=== PATIENT | male | born 1960 | race Caucasian/White ===

== ENCOUNTER → 2016-11-13 | Outpatient (CLI) | payer OTHER | END | disposition home or self-care (01) | LOC: CFH 11-07 09:24 → EDSTATUS 11-07 10:00 → CFH 13:35 | PROVIDERS: ATTEND Family Medicine | DX: I08.1 Rheumatic disorders of both mitral and tricuspid valves (principal) | CPT/HCPCS: 93306 ==

== ENCOUNTER → 2017-01-26 | Outpatient (CLI) | payer OTHER ==
[~2017-01-26] VITALS: Ht 188 cm; Wt 111.4 kg
[~2017-01-26] MED LIST: None at this Time
[2017-01-26 12:19] LABS: HEMATOCRIT 48.3 % (39.2-51.8); HEMOGLOBIN 16.2 g/dL (13.7-18.0); WHITE BLOOD COUNT 7.6 x10^3/uL (3.4-10)
[2017-01-26 12:29] LABS: ASPARTATE AMINO TRANSFERASE 16 U/L (15-37); BLOOD UREA NITROGEN 17 mg/dL (7-18)
[2017-01-26 14:23] VITALS: BP 134/89
== END | disposition home or self-care (01) ==
LOC: STAR 11:20
PROVIDERS: ATTEND Internal Medicine Cardiovascular Disease
DX: I34.0 Nonrheumatic mitral (valve) insufficiency (principal)
CPT/HCPCS: 36415; 80053; 85025; 85610; 85730

== ENCOUNTER 2017-01-30 11:06 | Day surgery (SDC) | payer BC, OTHER ==
[2017-01-30] MEDS ORDERED: SODIUM CHLORIDE 0.9% 1,000 ML IV SCH (12:27)
[2017-01-30] MEDS ORDERED: ZOLPIDEM 5MG TABLET PO PRN (12:30)
[2017-01-30] MEDS ORDERED: BISACODYL 10 MG SUPP PR PRN (12:30)
[2017-01-30] MEDS ORDERED: BISACODYL 5 MG EC TABLET PO PRN (12:30)
[2017-01-30] MEDS ORDERED: ONDANSETRON 2MG/ML, 2ML IVPush PRN (12:30)
[2017-01-30] MEDS ORDERED: ACETAMINOPHEN 325 MG TABLET PO PRN (12:30)
[2017-01-30] MEDS ORDERED: ASPIRIN 325 MG TABLET EC PO ONE (12:30)
[2017-01-30] MEDS ORDERED: ACETAMINOPHEN 325 MG TABLET ONE ×2 (16:55→16:58)
== END 2017-01-30 17:45 ==
LOC: OUT 11:06
PROVIDERS: ATTEND Internal Medicine Cardiovascular Disease
DX: I34.0 Nonrheumatic mitral (valve) insufficiency (principal); Z88.1 Allergy status to other antibiotic agents
CPT/HCPCS: 36415; 80061; 93458; 99156; C1760; C1894; Q9967

== ENCOUNTER → 2017-02-09 | Outpatient (CLI) | payer OTHER ==
[~2017-02-09] MED LIST changes: +OMNIPAQUE 350 MG/ML, 100ML BOTTLE ONE
== END | disposition home or self-care (01) ==
LOC: CFH 08:31
PROVIDERS: ATTEND Internal Medicine Cardiovascular Disease
DX: K76.89 Other specified diseases of liver (principal); M47.896 Other spondylosis, lumbar region; I34.0 Nonrheumatic mitral (valve) insufficiency
CPT/HCPCS: 71275; 74174; Q9967

== ENCOUNTER 2017-10-13 09:20 | Emergency (ER) | payer OTHER ==
[~2017-10-13] VITALS: Ht 177.8 cm; Wt 113.0 kg
[~2017-10-13 09:20] MED LIST changes: +ASPI-515 PO; -OMNIPAQUE 350 MG/ML, 100ML BOTTLE ONE; +OXYC10TA6 PO
[2017-10-13] MEDS ORDERED: ONDANSETRON ODT 4 MG ONE (09:59)
[2017-10-13] MEDS ORDERED: MAALOX/HYOSCYAMINE/LIDOCAINE 45 ML BTL ONE (09:59)
[2017-10-13] MEDS ORDERED: SODIUM CHLORIDE FLUSH 10ML SYR IVF ONE (10:00)
[2017-10-13] MEDS ORDERED: MAALOX/HYOSCYAMINE/LIDOCAINE 45 ML BTL PO ONE (10:00)
[2017-10-13] MEDS ORDERED: ONDANSETRON ODT 4 MG PO ONE (10:00)
[2017-10-13 10:05] LABS: BASOPHILS # (AUTO) 0.02 x10^3/uL (0-0.1); BASOPHILS % (AUTO) 0 % (0-1); EOSINOPHILS # (AUTO) 0.02 x10^3/uL (0-0.4); EOSINOPHILS % (AUTO) 0 % (1-7); LYMPHOCYTES # (AUTO) 1.06 x10^3/uL (1-3.4); LYMPHOCYTES % (AUTO) 14 % (22-44); MD NO; MEAN CORPUSCULAR VOLUME 85.4 fL (81-97); MONOCYTES % (AUTO) 7 % (2-9); NEUTROPHILS # (AUTO) 6.13 x10^3/uL (1.8-6.8); NEUTROPHILS % (AUTO) 79 % (42-75); PLATELET COUNT 163 x10^3/uL (130-400); RED CELL DISTRIBUTION WIDTH 16.3 % (9.4-14.8)
[2017-10-13 10:16] LABS: CHLORIDE 107 mmol/L (98-107)
[2017-10-13 10:17] LABS: ALBUMIN 3.9 g/dL (3.4-5.0); ANION GAP 10 mmol/L (5-15); CALCIUM 8.7 mg/dL (8.5-10.1)
[2017-10-13 10:20] LABS: ALANINE AMINOTRANSFERASE 29 U/L (12-78); ALKALINE PHOSPHATASE 67 U/L (45-117); CREATININE 1.06 mg/dL (0.7-1.3); TOTAL PROTEIN 7.1 g/dL (6.4-8.2); TROPONIN I < 0.015 ng/mL (0.000-0.045)
[2017-10-13 11:11] VITALS: BP 129/75
== END 2017-10-13 11:14 | disposition home or self-care (01) ==
LOC: ED 11:08
DX: R06.00 Dyspnea, unspecified (principal); R07.89 Other chest pain
CPT/HCPCS: 36415; 71046; 80053; 83690; 83880; 84484; 85025; 93005; 99285

== ENCOUNTER 2017-10-17 16:38 | Emergency (ER) | payer OTHER ==
[~2017-10-17] VITALS: Ht 188 cm; Wt 114.4 kg
[2017-10-17] MEDS ORDERED: ACETAMINOPHEN 325 MG TABLET PO ONE (17:30)
[2017-10-17] MEDS ORDERED: ACETAMINOPHEN 325 MG TABLET ONE (17:30)
[2017-10-17] MEDS ORDERED: SODIUM CHLORIDE 0.9% 1,000ML IVBOLUS ONE (17:30)
[2017-10-17 17:47] LABS: ALANINE AMINOTRANSFERASE 90 U/L (12-78); ANION GAP 10 mmol/L (5-15); CALCIUM 8.4 mg/dL (8.5-10.1); CHLORIDE 103 mmol/L (98-107); CREATININE 1.17 mg/dL (0.7-1.3)
[2017-10-17 17:49] LABS: ALKALINE PHOSPHATASE 94 U/L (45-117); BILIRUBIN,TOTAL 1.4 mg/dL (0.2-1.0); TOTAL PROTEIN 6.6 g/dL (6.4-8.2)
[2017-10-17 18:28] LABS: MEAN CORPUSCULAR HEMOGLOBIN 29.4 pg (27.5-34.5); MEAN CORPUSCULAR HGB CONC 34.4 g/dL (33.2-36.2); MEAN CORPUSCULAR VOLUME 85.5 fL (81-97); MEAN PLATELET VOLUME 10.4 fL (7.4-10.4); PLATELET COUNT 88 x10^3/uL (130-400); RED BLOOD COUNT 4.96 x10^6/uL (4.38-5.82)
[2017-10-17 18:31] LABS: BASOPHILS # (AUTO) 0.01 x10^3/uL (0-0.1); BASOPHILS % (AUTO) 0 % (0-1); EOSINOPHILS % (AUTO) 0 % (1-7); LYMPHOCYTES # (AUTO) 0.64 x10^3/uL (1-3.4); LYMPHOCYTES % (AUTO) 11 % (22-44); MD MORPH REVIEW ONLY; MONOCYTES # (AUTO) 0.58 x10^3/uL (0.2-0.8); MONOCYTES % (AUTO) 9 % (2-9); NEUTROPHILS # (AUTO) 4.87 x10^3/uL (1.8-6.8); NEUTROPHILS % (AUTO) 80 % (42-75)
[2017-10-17 18:32] LABS: <PLATELET ESTIMATE> DECREASED; ANISOCYTOSIS 1+
[2017-10-17 18:33] LABS: LARGE PLATELETS 1+
[2017-10-17] MEDS ORDERED: BENZONATATE 100 MG CAPSULE PO ONE (19:00)
[2017-10-17] MEDS ORDERED: IBUPROFEN 200 MG TABLET PO ONE (19:00)
[2017-10-17] MEDS ORDERED: ALBUTEROL SULFATE 2.5 MG/3 ML NPPB ONE (19:00)
[2017-10-17] MEDS ORDERED: SODIUM CHLORIDE 0.9%, 500ML IVBOLUS ONE (19:00)
[2017-10-17 19:13] VITALS: BP 132/78
[2017-10-17 19:18] LABS: RAPID INFLUENZA A Negative (Negative); RAPID INFLUENZA B Negative (Negative)
[2017-10-17] MEDS ORDERED: CEFTRIAXONE PMX 1GM/50ML 50 ML IV ONE (19:30)
[2017-10-17] MEDS ORDERED: AZITHROMYCIN 500 MG TABLET PO ONE (19:30)
[2017-10-17] MEDS ORDERED: CEFTRIAXONE PMX 1GM/50ML 50 ML ONE (19:31)
[2017-10-17] MEDS ORDERED: AZITHROMYCIN 500 MG TABLET ONE (19:31)
[2017-10-17] MEDS ORDERED: IBUPROFEN 200 MG TABLET ONE (19:35)
[2017-10-17] MEDS ORDERED: BENZONATATE 100 MG CAPSULE ONE ×2 (19:35→19:46)
== END 2017-10-17 20:16 | disposition home or self-care (01) ==
LOC: ED 20:15
DX: J06.9 Acute upper respiratory infection, unspecified (principal); R50.9 Fever, unspecified; I10 Essential (primary) hypertension
CPT/HCPCS: 36415; 71045; 80053; 83605; 84145; 85025; 87040; 87400; 87633; 93005; 94640; 96374; 99285; J0696; J7030; J7040; 87077; J7613

== ENCOUNTER 2017-10-21 18:18 | Inpatient (IN) | payer OTHER ==
[~2017-10-21] VITALS: Ht 188 cm; Wt 115.0 kg
[2017-10-21] MEDS ORDERED: SODIUM CHLORIDE FLUSH 10ML SYR IVF ONE (18:30)
[2017-10-21] MEDS ORDERED: CEFTRIAXONE PMX 1GM/50ML 50 ML IV ONE (18:30)
[2017-10-21] MEDS ORDERED: CEFTRIAXONE PMX 1GM/50ML 50 ML ONE (19:16)
[2017-10-21 19:21] LABS: HCT (SEDRATE) 40.4 % (39.2-51.8); MEAN CORPUSCULAR HEMOGLOBIN 29.3 pg (27.5-34.5); MEAN CORPUSCULAR HGB CONC 34.1 g/dL (33.2-36.2); MEAN CORPUSCULAR VOLUME 85.8 fL (81-97); RED CELL DISTRIBUTION WIDTH 16.8 % (9.4-14.8)
[2017-10-21 19:23] LABS: ALANINE AMINOTRANSFERASE 61 U/L (12-78); ALBUMIN 3.1 g/dL (3.4-5.0); ANION GAP 7 mmol/L (5-15); CALCIUM 8.8 mg/dL (8.5-10.1); CHLORIDE 107 mmol/L (98-107); CREATININE 0.91 mg/dL (0.7-1.3)
[2017-10-21] MEDS ORDERED: METO25TA35 PO (19:26)
[2017-10-21 19:29] LABS: ALKALINE PHOSPHATASE 85 U/L (45-117); BILIRUBIN,TOTAL 0.3 mg/dL (0.2-1.0); TOTAL PROTEIN 7.1 g/dL (6.4-8.2)
[2017-10-21 19:41] LABS: BASOPHILS # (AUTO) 0.09 x10^3/uL (0-0.1); BASOPHILS % (AUTO) 1 % (0-1); EOSINOPHILS # (AUTO) 0.09 x10^3/uL (0-0.4); EOSINOPHILS % (AUTO) 1 % (1-7); LYMPHOCYTES # (AUTO) 2.41 x10^3/uL (1-3.4); LYMPHOCYTES % (AUTO) 26 % (22-44); MD SCAN; MEAN PLATELET VOLUME 8.9 fL (7.4-10.4); MONOCYTES # (AUTO) 0.78 x10^3/uL (0.2-0.8); MONOCYTES % (AUTO) 9 % (2-9); NEUTROPHILS # (AUTO) 5.85 x10^3/uL (1.8-6.8); NEUTROPHILS % (AUTO) 63 % (42-75); PLATELET COUNT 290 x10^3/uL (130-400)
[2017-10-21] MEDS ORDERED: OMNIPAQUE 350 MG/ML, 100ML BOTTLE ONE (19:49)
[2017-10-21 19:57] LABS: SEDIMENTATION RATE 63 mm/hr (0-10)
[2017-10-21] MEDS ORDERED: ACETAMINOPHEN 325 MG TABLET PO PRN (20:30)
[2017-10-21] MEDS ORDERED: ENALAPRILAT 1.25 MG/ML, 2ML IVPush PRN (20:30)
[2017-10-21 23:24] VITALS: BP 121/74
[2017-10-22 00:50] VITALS: BP 108/58
[2017-10-22] MEDS: CEFTRIAXONE PMX 2GM/50ML 50 ML IV SCH (07:29)
[2017-10-22 08:08] VITALS: BP 117/66
[2017-10-22] MEDS: METOPROLOL TARTRATE 25 MG TABLET PO SCH (12:54)
[2017-10-22] MEDS: ASPIRIN 81 MG TABLET EC PO SCH (12:54)
[2017-10-22 14:02] VITALS: BP 123/68
[2017-10-22 18:57] VITALS: BP 134/78
[2017-10-23 01:08] VITALS: BP 99/63
[2017-10-23 05:49] LABS: BASOPHILS # (AUTO) 0.03 x10^3/uL (0-0.1); BASOPHILS % (AUTO) 0 % (0-1); EOSINOPHILS # (AUTO) 0.09 x10^3/uL (0-0.4); EOSINOPHILS % (AUTO) 1 % (1-7); LYMPHOCYTES # (AUTO) 1.95 x10^3/uL (1-3.4); LYMPHOCYTES % (AUTO) 23 % (22-44); MD NO; MEAN CORPUSCULAR HEMOGLOBIN 29.5 pg (27.5-34.5); MEAN CORPUSCULAR HGB CONC 34.2 g/dL (33.2-36.2); MEAN CORPUSCULAR VOLUME 86.2 fL (81-97); MEAN PLATELET VOLUME 8.4 fL (7.4-10.4); MONOCYTES # (AUTO) 0.67 x10^3/uL (0.2-0.8); MONOCYTES % (AUTO) 8 % (2-9); NEUTROPHILS # (AUTO) 5.72 x10^3/uL (1.8-6.8); NEUTROPHILS % (AUTO) 68 % (42-75); PLATELET COUNT 283 x10^3/uL (130-400); RED BLOOD COUNT 4.53 x10^6/uL (4.38-5.82); RED CELL DISTRIBUTION WIDTH 16.7 % (9.4-14.8)
[2017-10-23] MEDS: CEFTRIAXONE PMX 2GM/50ML 50 ML IV SCH (06:22)
[2017-10-23 06:40] VITALS: BP 104/64
[2017-10-23] MEDS: METOPROLOL TARTRATE 25 MG TABLET PO SCH (08:33)
[2017-10-23] MEDS: ASPIRIN 81 MG TABLET EC PO SCH (08:33)
[2017-10-23] MEDS ORDERED: LIDOCAINE-MPF 1%, 2ML ONE (08:54)
[2017-10-23 14:57] VITALS: BP 125/75
== END 2017-10-23 16:28 | disposition home or self-care (01) | DRG 872 ==
LOC: ED 21:20 → EDIP 22:30 → 4WST 22:35 → DCLOUNGE 10-23 16:22
PROVIDERS: ADMIT Family Medicine; ATTEND Family Medicine
PROC: 02HV33Z Insertion of Infusion Device into Superior Vena Cava, Percutaneous Approach (ICD-10-PCS; principal; 2017-10-23)
PROC: B518ZZA Fluoroscopy of Superior Vena Cava, Guidance (ICD-10-PCS; 2017-10-23)
PROC: B548ZZA Ultrasonography of Superior Vena Cava, Guidance (ICD-10-PCS; 2017-10-23)
DX: A41.9 Sepsis, unspecified organism (principal); I11.0 Hypertensive heart disease with heart failure; I38 Endocarditis, valve unspecified; I50.9 Heart failure, unspecified; D63.8 Anemia in other chronic diseases classified elsewhere; B96.89 Other specified bacterial agents as the cause of diseases classified elsewhere; E66.9 Obesity, unspecified; Z88.2 Allergy status to sulfonamides; Z68.32 Body mass index [BMI] 32.0-32.9, adult
CPT/HCPCS: 36415; 36569; 71260; 76937; 77001; 80053; 83605; 85025; 85651; 86141; 87040; 93005; 93306; 96365; J0696; J3490; Q9967; C1751